=== PATIENT | female | born 1965 | race Caucasian/White ===

== ENCOUNTER → 2016-12-06 | Outpatient (CLI) | payer OTHER | END | disposition home or self-care (01) | LOC: LAB.O 09:22 | PROVIDERS: ATTEND Nurse Practitioner Family | DX: E34.9 Endocrine disorder, unspecified (principal); N95.1 Menopausal and female climacteric states; I10 Essential (primary) hypertension; E03.9 Hypothyroidism, unspecified ==

== ENCOUNTER → 2016-12-16 | Outpatient (CLI) | payer OTHER, SELFPAY ==
--- NOTE | 2016-12-18 09:03 | MRI ---
EXAM DESCRIPTION: Cervical Spine CLINICAL HISTORY: Cervical root disorders, not elsewhere classified COMPARISON: None Available. TECHNIQUE: MRI of the cervical spine is performed according to our usual protocol. FINDINGS: There is good alignment of the cervical spine. Vertebral body stature is maintained. Craniocervical junction and the cervical spinal cord are unremarkable. C2-3: The disc is well hydrated. There is no loss of height. There is no bulging. The facets are unremarkable with no significant hypertrophy. There is no stenosis or impingement. C3-4: 2 mm broad-based posterior disc protrusion. There is mild bilateral neuroforaminal narrowing, right greater than left. C4-5: The disc is well hydrated. There is no loss of height. There is no bulging. The facets are unremarkable with no significant hypertrophy. There is no stenosis or impingement. C5-6: 4 mm broad-based posterior disc protrusion with cord contact. The midline diameter of the spinal canal is narrowed to 8.5 mm. Moderate bilateral neuroforaminal narrowing. C6-7: 4 mm broad-based posterior disc protrusion with subtle cord flattening. The midline diameter of the spinal canal is narrowed to 9.5 mm. There is moderate left and mild right neuroforaminal narrowing. C7-T1: The disc is well hydrated. There is no loss of height. There is no bulging. The facets are unremarkable with no significant hypertrophy. There is no stenosis or impingement. IMPRESSION: 1. Today's exam demonstrates degenerative most pronounced at C5-6 and C6-7. At these levels posterior disc protrusions resulting minimal cord contact and spinal canal narrowing. 2. There is neuroforaminal narrowing at C5-6, C6-7 and C3-C4. Electronically signed by: Xavier Quijano MD 12/18/2016 9:02 AM CDT
== END | disposition home or self-care (01) ==
LOC: MRI 13:45
PROVIDERS: ATTEND Nurse Practitioner Family
DX: M50.223 Other cervical disc displacement at C6-C7 level (principal)

== ENCOUNTER → 2017-06-17 | Outpatient (CLI) | payer OTHER, SELFPAY ==
--- NOTE | 2017-06-18 16:37 | MAM ---
EXAM DESCRIPTION: 3D Screening BILATERAL CLINICAL HISTORY: 52 yearsFemaleSCREENING . Problems with right implant capsule. No family history of breast cancer. Hysterectomy 2002. Current HRT. Bilateral breast augmentation. COMPARISON: 2-D digital screening bilateral study 11/08/2015 and 09/30/2011. No prior reports available. TECHNIQUE: Bilateral digital screening. CC and MLO projection full-field, 2-D images. Bilateral Noel implant displacement images, CC and MLO full-field projections, 3-D tomosynthesis. CAD not utilized. FINDINGS: The breast parenchymal density pattern is: Heterogeneously dense breast tissue, which may obscure small masses. No skin thickening or nipple retraction bilaterally. Bilateral subpectoral saline implants. The right implant appears smaller and more dense than the left with radiodensity abutting the superior and anterior capsule, with anterior capsular border also noted. This was also seen on the prior studies. Bilateral solitary microcalcifications. No focal, stellate mass or density no focal asymmetry, and no suspicious microcalcifications bilaterally Stable mammograms compared to prior studies, taking into account differences in mammographic technique. IMPRESSION: BI-RADS CATEGORY: 2 - BENIGN FINDINGS. FOLLOW UP: Routine digital bilateral screening, one year interval from May 2017. Written communication explaining the IMPRESSION and follow-up, will be mailed to the patient and referring health care provider. According to the [employer], yearly mammograms are recommended starting at age 40 and continuing as long as a woman is in good health. Any breast change noted on a breast self-exam should be reported promptly to the patient's healthcare provider. Breast MRI is recommended for women with an approximately 20-25% or greater lifetime risk of breast cancer, including women with a strong family history of breast or ovarian cancer and women who have been treated for Hodgkin's disease. A negative mammographic report should not delay tissue diagnosis in patients with significant clinical history or physical findings. Extremely dense breast tissue limits the sensitivity of digital mammography. Electronically signed by: Kota Olivera MD 06/18/2017 4:35 PM CDT
== END | disposition home or self-care (01) ==
LOC: MAMMO 10:52
PROVIDERS: ATTEND Nurse Practitioner Family
DX: Z12.31 Encounter for screening mammogram for malignant neoplasm of breast (principal)
CPT/HCPCS: 77063; G0202

== ENCOUNTER → 2018-06-18 | Outpatient (CLI) | payer OTHER ==
--- NOTE | 2018-06-19 15:41 | MAM ---
EXAM DESCRIPTION: 3D Screening BILATERAL : Digital Mammography. CLINICAL HISTORY: 53 years Female SCREENING . No complaints. No personal or family history of breast cancer. Partial hysterectomy. Childbirth. Currently on HRT. Bilateral breast augmentation. Lifetime risk of developing breast cancer (Tyrer-Cuzick model)(%): 5.9 COMPARISON: Bilateral screening digital breast tomosynthesis 06/17/2017.. TECHNIQUE: Bilateral CC and MLO projection full-field images, with Onel Implant Displacement Digital tomosynthesis mammographic technique. Bilateral 2-D digital full-field images, MLO and CC projections, non-displaced, with CAD. Bilateral digital 2-D full-field MLO images. CAD not utilized. FINDINGS: The breast parenchymal density pattern is: Heterogeneously dense breast tissue, which may obscure small masses. No skin thickening or nipple retraction. Bilateral solitary microcalcifications. Small group of microcalcifications stable in the left breast. Bilateral retroglandular saline implants. Implant capsules appear intact where seen. Small calcification abutting the anterior implant capsule on the right breast is stable since the prior study. No new focal, stellate mass or density, focal asymmetry , and no suspicious microcalcifications bilaterally. Stable mammograms compared to prior study. Taking into account, differences in mammographic technique. IMPRESSION: Benign exam. BIRAD CATEGORY: 2 BENIGN FINDINGS. RECOMMENDATIONS: FOLLOW UP: Routine digital bilateral screening, one year interval from May 2018. Written communication explaining the IMPRESSION and follow-up, will be mailed to the patient and referring health care provider. According to the [employer], yearly mammograms are recommended starting at age 40 and continuing as long as a woman is in good health. Any breast change noted on a breast self-exam should be reported promptly to the patient's healthcare provider. Breast MRI is recommended for women with an approximately 20-25% or greater lifetime risk of breast cancer, including women with a strong family history of breast or ovarian cancer and women who have been treated for Hodgkin's disease. A negative mammographic report should not delay tissue diagnosis in patients with significant clinical history or physical findings. Extremely dense breast tissue limits the sensitivity of digital mammography. Electronically signed by: Kota Olivear MD 06/19/2018 3:40 PM CDT
== END ==
LOC: MAMMO 10:00
PROVIDERS: ATTEND Nurse Practitioner Family
DX: Z12.31 Encounter for screening mammogram for malignant neoplasm of breast (principal)

== ENCOUNTER → 2019-07-09 | Outpatient (CLI) | payer OTHER ==
--- NOTE | 2019-07-13 17:58 | MAM ---
EXAM DESCRIPTION: 3D Screening BILATERAL : Digital Mammography. CLINICAL HISTORY: 54 years Female ANNUAL SCREENING . No complaints. No personal or family history of breast cancer. Bilateral breast augmentation. Menarche age 17. First childbirth age 21. Hysterectomy unknown duration. Topical estrogen use.. Lifetime risk of developing breast cancer (Tyrer-Cuzick model)(%): 6.5. COMPARISON: Bilateral screening digital breast tomosynthesis with Noel implant displacement technique 18 June 2018. TECHNIQUE: Bilateral CC and MLO projection full-field images, with Noel Implant Displacement digital tomosynthesis mammographic technique. Bilateral 2-D digital full-field images, MLO and CC projections, non-displaced. Bilateral digital 2-D full-field MLO images. Implant displaced CAD not available for tomosynthesis or 2-D images. FINDINGS: The breast parenchymal density pattern is: Extremely dense breast tissue, which lowers the sensitivity of mammography.. Bilateral solitary microcalcifications. Bilateral retroglandular saline implants. Capsules are smooth where seen. Minimal calcification in the capsules. Bilateral axillary lymph nodes. No new focal, stellate mass or density, focal asymmetry , and no suspicious microcalcifications bilaterally. Stable mammograms compared to prior study. IMPRESSION: Benign exam. BIRAD CATEGORY: 2 BENIGN FINDINGS. RECOMMENDATIONS: FOLLOW UP: Routine digital bilateral mammographic screening, one year interval from June 2019. Written communication explaining the IMPRESSION and follow-up, will be mailed to the patient and referring health care provider. According to the [employer], yearly mammograms are recommended starting at age 40 and continuing as long as a woman is in good health. Any breast change noted on a breast self-exam should be reported promptly to the patient's healthcare provider. Breast MRI is recommended for women with an approximately 20-25% or greater lifetime risk of breast cancer, including women with a strong family history of breast or ovarian cancer and women who have been treated for Hodgkin's disease. A negative mammographic report should not delay tissue diagnosis in patients with significant clinical history or physical findings. Extremely dense breast tissue limits the sensitivity of digital mammography. Electronically signed by: Kota Olivera MD 07/13/2019 5:56 PM [employer]
== END ==
LOC: MAMMO 12:52
PROVIDERS: ATTEND Obstetrics & Gynecology
DX: Z12.31 Encounter for screening mammogram for malignant neoplasm of breast (principal)

== ENCOUNTER → 2020-07-13 | Outpatient (CLI) | payer OTHER ==
--- NOTE | 2020-07-14 15:22 | MAM ---
EXAM DESCRIPTION: 3D Screening BILATERAL : Digital Mammography. CLINICAL HISTORY: 55 years Female screening . No complaints. Right breast implant began to calcify 15 years ago. No personal history of breast cancer. Menarche age 18. Childbirth age 21. Menopause age for that came. Currently on HRT. Bilateral breast augmentation 17 years ago. Lifetime risk of developing breast cancer (Tyrer-Cuzick model)(%): 5.7. COMPARISON: Bilateral screening digital breast tomosynthesis May 2019 and May 2018. TECHNIQUE: Bilateral CC and MLO projection full-field images, with Noel Implant Displacement digital tomosynthesis mammographic technique. Bilateral 2-D digital full-field images, MLO and CC projections, non-displaced. Bilateral digital 2-D full-field MLO images. CAD available for 2-D images. FINDINGS: The breast parenchymal density pattern is: Heterogeneously dense breast tissue, which may obscure small masses. No skin thickening or nipple retraction. Partially calcified capsule right breast retro-muscular saline implant; also with folds and volume loss. No calcification left breast implant capsule. Solitary microcalcifications. Axillary nodes. No new focal, stellate mass or density, focal asymmetry , and no suspicious microcalcifications bilaterally. Stable mammograms compared to prior study. Taking into account, differences in mammographic technique. IMPRESSION: Benign exam. BIRAD CATEGORY: 2 BENIGN FINDINGS. RECOMMENDATIONS: FOLLOW UP: Routine digital bilateral mammographic screening, one year interval from June 2020. Written communication explaining the IMPRESSION and follow-up, will be mailed to the patient and referring health care provider. According to the [employer], yearly mammograms are recommended starting at age 40 and continuing as long as a woman is in good health. Any breast change noted on a breast self-exam should be reported promptly to the patient's healthcare provider. Breast MRI is recommended for women with an approximately 20-25% or greater lifetime risk of breast cancer, including women with a strong family history of breast or ovarian cancer and women who have been treated for Hodgkin's disease. A negative mammographic report should not delay tissue diagnosis in patients with significant clinical history or physical findings. Extremely dense breast tissue limits the sensitivity of digital mammography. Electronically signed by: Kota Olivera MD 07/14/2020 3:21 PM [employer]
== END ==
LOC: MAMMO 10:30
PROVIDERS: ATTEND Obstetrics & Gynecology
DX: Z12.31 Encounter for screening mammogram for malignant neoplasm of breast (principal)